=== PATIENT | male | born 1955 | race Caucasian/White ===

== ENCOUNTER 2021-05-31 08:34 | Day surgery (SDC) | payer BC ==
[~2021-05-31 08:34] MED LIST: Lactated Ringers 1,000 ML IV SCH
[2021-05-31] MEDS ORDERED: Propofol 200 MG/20 ML SDV ONE ×2 (09:31→10:36)
[2021-05-31] MEDS ORDERED: fentaNYL 100 MCG/2 ML SDV ONE (09:31)
--- NOTE | 2021-06-04 11:37 | OR ---
PREOPERATIVE DIAGNOSIS: Screening colonoscopy. POSTOPERATIVE DIAGNOSIS: Colon polyps. ANESTHESIA: MAC anesthesia. COMPLICATIONS: None apparent. BLOOD LOSS: Minimal. FINDINGS: Ascending colon polyp, 3 mm, cold forceps. Start time 10:27, cecum 10:31, stop time 10:42. BOWEL PREP: [place] class 3. INDICATION FOR PROCEDURE: Mr. Ferreira is a 66-year-old male who last had a scope about 10 years ago. He denies history of polyps. No family history of colorectal cancer. He has not noticed any bloody or dark black stools. DETAILS OF PROCEDURE: Informed consent was obtained. The patient was brought to the procedure room, placed in left lateral decubitus position. MAC anesthesia was used by Anesthesia colleagues. Colonoscope was introduced in the rectum and advanced all the way to the cecum. The appendiceal orifice and ileocecal valve were photographed. The colonoscope was then slowly withdrawn. No pathology was identified except for as mentioned in the above findings section. A retroflexed view was obtained, and the colonoscope was removed. The patient tolerated the procedure well, was awoken from anesthesia by Anesthesia colleagues without incident. PATHOLOGY: Colon, ascending polyp Sessile serrated adenoma. Recommend repeat screening colonoscopy in 5 years. RKM: 05/31/2021 10:47:01 MODL: 05/31/2021 17:09:21 /[id number] MARGIE
== END 2021-05-31 14:51 | disposition home or self-care (01) ==
LOC: VM.SDS 08:34
PROVIDERS: ATTEND Student in an Organized Health Care Education/Training Program
DX: Z12.11 Encounter for screening for malignant neoplasm of colon (principal); D12.2 Benign neoplasm of ascending colon; I10 Essential (primary) hypertension; J45.20 Mild intermittent asthma, uncomplicated; L98.8 Other specified disorders of the skin and subcutaneous tissue; I48.91 Unspecified atrial fibrillation; Z79.899 Other long term (current) drug therapy
CPT/HCPCS: 00812; J2704; J3010; J7120

== ENCOUNTER 2024-01-18 19:17 | Emergency (ER) | payer MEDICARE, OTHER ==
[2024-01-18] MEDS ORDERED: Lidocaine 1% 30 ML SDV INJECT ONE (19:25)
== END 2024-01-18 20:08 | disposition home or self-care (01) ==
LOC: VM.ED 19:17
DX: S61.011A Laceration without foreign body of right thumb without damage to nail, initial encounter (principal); I10 Essential (primary) hypertension; J45.909 Unspecified asthma, uncomplicated; Z79.899 Other long term (current) drug therapy; W26.8XXA Contact with other sharp object(s), not elsewhere classified, initial encounter
CPT/HCPCS: 12002; 99282; 99283